=== PATIENT | female | born 1990 | race Hispanic/Latino ===

== ENCOUNTER 2021-12-24 22:09 | Emergency (ER) | payer MEDICAID, SELFPAY ==
[2021-12-24] MEDS ORDERED: Ondansetron PF 4 MG/2 ML Vial ONE (22:18)
[2021-12-24 23:02] LABS: #Basophils 0.1 10x3/uL (0.0-0.2); #Eosinphils 0.2 10x3/uL (0.0-0.5); #Monocytes 0.6 10x3/uL (0.0-1.1); #Neutrophils 3.1 10x3/uL (1.5-8.4); %Basophils 0.9 % (0.0-2.0); %Eosinophils 2.9 % (0.0-6.0); %Lymphocytes 33.1 % (18.0-47.0); %Monocytes 9.7 % (0.0-10.0); %Neutrophils 53.2 % (40.0-75.0); Hemoglobin 12.3 g/dL (12.0-15.5); Mean Corpuscular HGB CONC 33.9 g/dL (32.0-36.0); Mean Corpuscular Hemoglobin 28.7 pg (27.0-33.0); Mean Corpuscular Volume 84.6 fl (81.6-98.3); Mean Platelet Volume 11.3 fl (7.4-10.4); Platelet Count 172 10x3/uL (150-450); RBC Distribution Width 13.2 % (11.5-14.5); Red Blood Cell (RBC) Count 4.29 10x6/uL (3.90-5.03); White Blood Cell (WBC) Count 5.8 10x3/uL (3.5-10.5)
[2021-12-24 23:06] LABS: BHCG - Serum Negative (NEGATIVE); Pregs Control Background? CLEAR/WHITE (CLR/WHITE); Pregs Control Bar Appear? YES (CONTROL BAR)
[2021-12-24 23:12] LABS: ALT (SGPT) 19 U/L (8-55); AST (SGOT) 22 U/L (5-34); Albumin 4.3 g/dL (3.5-5.0); Alkaline Phosphatase 77 U/L (40-110); Anion Gap 14 mmol/L (10-20); BUN (Urea Nitrogen) 11 mg/dL (7.0-18.7); Bilirubin, Total 0.3 mg/dL (0.2-1.2); Calc. Creatinine Clearance 0 mL/min (70-130); Calcium 8.9 mg/dL (7.8-10.44); Carbon Dioxide 16 mmol/L (22-29); Chloride 116 mmol/L (98-107); Estimated GFR 114; Globulin 2.9 g/dL (2.4-3.5); Glucose 88 mg/dL (70-105); Protein, Total 7.2 g/dL (6.0-8.3); Sodium 143 mmol/L (136-145)
[2021-12-24 23:13] LABS: Acetaminophen Less than 10.0 mcg/mL (10.0-30.0); Alcohol 205 mg/dL (Less than 10); Salicylate Less than 8.0 mg/dL (15.0-30.0)
== END 2021-12-25 01:33 | disposition home or self-care (01) ==
LOC: CSHERS 22:09
DX: F10.129 Alcohol abuse with intoxication, unspecified (principal); Y90.7 Blood alcohol level of 200-239 mg/100 ml
CPT/HCPCS: 36415; 70450; 71045; 80053; 80307; 84703; 85025; 96374; J2405

== ENCOUNTER 2024-03-04 18:13 | Day surgery (SDC) | payer OTHER ==
[2024-03-04 18:33] VITALS: BMI 31.9
[2024-03-04] MEDS ORDERED: hydrALAZINE 20 MG/ML VIAL SLOW IVP PRN (18:48)
[2024-03-04 19:11] LABS: Fetal Membranes Rupture No Membranes Rupture (No Rupture)
[2024-03-04] MEDS: Acetaminophen 500 MG TAB PO SCH (19:43)
== END 2024-03-04 21:56 | disposition home or self-care (01) ==
LOC: CSHLD/OP 18:13
PROVIDERS: ATTEND Obstetrics & Gynecology
DX: O47.1 False labor at or after 37 completed weeks of gestation (principal); O14.93 Unspecified pre-eclampsia, third trimester; O99.513 Diseases of the respiratory system complicating pregnancy, third trimester; J45.909 Unspecified asthma, uncomplicated; O98.813 Other maternal infectious and parasitic diseases complicating pregnancy, third trimester; A74.9 Chlamydial infection, unspecified; O23.593 Infection of other part of genital tract in pregnancy, third trimester; N89.8 Other specified noninflammatory disorders of vagina; Z79.82 Long term (current) use of aspirin; Z79.899 Other long term (current) drug therapy; Z3A.38 38 weeks gestation of pregnancy
CPT/HCPCS: 84112; 87480; 87510; 87660; 99283; 99285

== ENCOUNTER 2024-03-14 19:00 | Inpatient (IN) | payer MEDICAID, OTHER ==
[~2024-03-14 19:00] MED LIST: Bupivacaine 0.25% HCL 30 ML VIAL ONE
[2024-03-14 23:03] VITALS: BMI 36.7
[2024-03-14] MEDS ORDERED: Methylergonovine 0.2 MG/ML VIAL IM PRN (23:16)
[2024-03-14] MEDS ORDERED: Tranexamic Acid 1,000 MG/10 ML VIAL IVP PRN (23:16)
[2024-03-14] MEDS ORDERED: Acetaminophen 500 MG TAB PO PRN (23:16)
[2024-03-14] MEDS ORDERED: Promethazine HCl 25 MG/ML VIAL IM PRN (23:16)
[2024-03-14] MEDS ORDERED: hydrALAZINE 20 MG/ML VIAL SLOW IVP PRN (23:16)
[2024-03-14] MEDS ORDERED: Lidocaine 1% (PF) 30 ML VIAL SC PRN (23:16)
[2024-03-14] MEDS ORDERED: Ondansetron PF 4 MG/2 ML Vial IVP PRN (23:16)
[2024-03-14] MEDS ORDERED: Docusate 100 MG CAP PO PRN (23:16)
[2024-03-14] MEDS: Lactated Ringer's 1,000 ML IV SCH (23:30)
[2024-03-14] MEDS ORDERED: Oxytocin 30 units/NS 500 ML 500 ML IV SCH ×2 (23:30)
[2024-03-14 23:38] LABS: Hematocrit 32.3 % (34.9-44.5); Hemoglobin 10.7 g/dL (12.0-15.5); Mean Corpuscular HGB CONC 33.1 g/dL (32.0-36.0); Mean Corpuscular Hemoglobin 27.2 pg (27.0-33.0); Mean Platelet Volume 11.8 fL (7.4-10.4); Platelet Count 225 10x3/uL (150-450); RBC Distribution Width 15.3 % (11.5-14.5); Red Blood Cell (RBC) Count 3.94 10x6/uL (3.90-5.03); White Blood Cell (WBC) Count 6.1 10x3/uL (3.5-10.5)
[2024-03-14] MEDS: Penicillin G Potassium 5 MILL.UNITS in Sodium Chloride 0.9% 100 ML IVPB SCH (23:45)
[2024-03-14 23:58] LABS: Syphilis Antibody Nonreactive (Nonreactive); Syphilis Antibody Index 0.02 S/CO (<1.00 Non-Reactive)
[2024-03-14 23:59] LABS: Hep B Surf Ag - L&D Non-Reactive S/CO (NonReactive)
[2024-03-15] MEDS: fentaNYL/Ropivacaine Epidural 100 ML ONE (02:26)
[2024-03-15] MEDS ORDERED: Lactated Ringer's 500 ML IV PRN (03:04)
[2024-03-15] MEDS ORDERED: ePHEDrine Sulfate 50 MG/10 ML VIAL SLOW IVP PRN (03:04)
[2024-03-15] MEDS ORDERED: Promethazine HCl 25 MG/ML VIAL IM PRN (03:04)
[2024-03-15] MEDS ORDERED: Ondansetron PF 4 MG/2 ML Vial IVP PRN (03:04)
[2024-03-15] MEDS ORDERED: diphenhydrAMINE 50 MG/ML VIAL IVP PRN (03:04)
[2024-03-15] MEDS ORDERED: Moisturizing Cream (Eucerin) 113 GM JAR TOP PRN (03:04)
[2024-03-15] MEDS ORDERED: Naloxone HCl 0.4 mg/ml Vial IVP PRN ×2 (03:04)
[2024-03-15] MEDS: Penicillin G 2.5 MILL.units 2.5 MILL.UNITS in Premix 1 BAG IVPB SCH (03:09)
[2024-03-15] MEDS ORDERED: ACTIVE EPIDURAL FS SCH (03:15)
[2024-03-15] MEDS ORDERED: fentaNYL 2 mcg/Ropivacaine 0.2% Epidural 100 ML CADD EPIDURAL SCH (03:15)
[2024-03-15] MEDS: Misoprostol 200 MCG TAB PR PRN (04:10)
[2024-03-15] MEDS: Oxytocin 30 units/NS 500 ML 500 ML IV SCH (04:15)
[2024-03-15] MEDS ORDERED: Lorazepam 2 MG/ML VIAL SLOW IVP PRN (05:29)
[2024-03-15] MEDS ORDERED: Calcium Gluc 4.6 MEQ/10 ML (100 MG/ML) SLOW IVP PRN (05:29)
[2024-03-15] MEDS ORDERED: Labetalol HCl 100 MG/20 ML VIAL SLOW IVP PRN ×2 (05:29)
[2024-03-15] MEDS ORDERED: hydrALAZINE 20 MG/ML VIAL SLOW IVP PRN ×3 (05:29→06:32)
[2024-03-15] MEDS: Ibuprofen 800 MG TAB PO PRN (05:39)
[2024-03-15 06:11] LABS: #Basophils 0.04 10x3/uL (0.0-0.2); #Eosinophils 0.03 10x3/uL (0.0-0.5); #Monocytes 0.56 10x3/uL (0.0-1.1); #Neutrophils 8.06 10x3/uL (1.5-8.4); %Basophils 0.4 % (0.0-2.0); %Eosinophils 0.3 % (0.0-6.0); %Lymphocytes 11.8 % (18.0-47.0); %Monocytes 5.6 % (0.0-10.0); %Neutrophils 81.3 % (40.0-75.0); Hematocrit 30.6 % (34.9-44.5); Hemoglobin 10.3 g/dL (12.0-15.5); Mean Corpuscular HGB CONC 33.7 g/dL (32.0-36.0); Mean Corpuscular Hemoglobin 27.5 pg (27.0-33.0); Mean Corpuscular Volume 81.8 fL (81.6-98.3); Mean Platelet Volume 11.4 fL (7.4-10.4); Platelet Count 218 10x3/uL (150-450); RBC Distribution Width 15.5 % (11.5-14.5); Red Blood Cell (RBC) Count 3.74 10x6/uL (3.90-5.03); White Blood Cell (WBC) Count 9.9 10x3/uL (3.5-10.5)
[2024-03-15 06:18] LABS: ALT (SGPT) 9 U/L (8-55); AST (SGOT) 16 U/L (5-34); Albumin 2.8 g/dL (3.5-5.0); Alkaline Phosphatase 162 U/L (40-110); Anion Gap 15 mmol/L (10-20); BUN (Urea Nitrogen) 8 mg/dL (7.0-18.7); Bilirubin, Total 0.3 mg/dL (0.2-1.2); Calc. Creatinine Clearance 153 mL/min (70-130); Calcium 8.3 mg/dL (7.8-10.44); Carbon Dioxide 17 mmol/L (22-29); Chloride 108 mmol/L (98-107); Estimated GFR 108; Globulin 3.4 g/dL (2.4-3.5); Glucose 88 mg/dL (70-105); Potassium 4.3 mmol/L (3.5-5.1); Protein, Total 6.2 g/dL (6.0-8.3); Sodium 136 mmol/L (136-145)
[2024-03-15] MEDS ORDERED: Preparation H Ointment 28 GM TUBE PR PRN (06:32)
[2024-03-15] MEDS ORDERED: Bisacodyl 10 MG SUPP PR PRN (06:32)
[2024-03-15] MEDS ORDERED: Lanolin Ointment 7 GM TUBE TOP PRN (06:32)
[2024-03-15] MEDS ORDERED: Benzocaine-Menthol 82.5 ML CAN TOP PRN (06:32)
[2024-03-15] MEDS ORDERED: Milk Of Magnesia 30 ML UDCUP PO PRN (06:32)
[2024-03-15 07:13] LABS: Creatinine, Urine 95.33 mg/dL (47-110)
[2024-03-15] MEDS: Ibuprofen 800 MG TAB PO SCH ×2 (08:47→13:35)
[2024-03-15] MEDS: Ferrous Sulfate 325 MG TAB PO SCH (08:48)
[2024-03-15] MEDS: Boostrix 0.5 ML (Tdap) VIAL (>/=7 yrs of age) IM ONE (08:48)
[2024-03-15] MEDS: Docusate 100 MG CAP PO SCH (09:04)
[2024-03-15] MEDS: Prenatal Vitamin 1 TAB PO SCH (09:04)
[2024-03-16 07:43] VITALS: BP 132/75; TEMP 98.5
[2024-03-16] MEDS: Acetaminophen 325 MG TAB PO PRN (08:34)
== END 2024-03-16 15:50 | disposition home or self-care (01) | DRG 807 ==
LOC: CSHLD 21:10 → CSHPP 03-15 08:00
PROVIDERS: ADMIT Family Medicine; ATTEND Family Medicine
PROC: 10E0XZZ Delivery of Products of Conception, External Approach (ICD-10-PCS; principal; 2024-03-15)
DX: O99.824 Streptococcus B carrier state complicating childbirth (principal); Z37.0 Single live birth; O99.52 Diseases of the respiratory system complicating childbirth; J45.909 Unspecified asthma, uncomplicated; Z14.8 Genetic carrier of other disease; Z79.899 Other long term (current) drug therapy; O09.43 Supervision of pregnancy with grand multiparity, third trimester; Z3A.40 40 weeks gestation of pregnancy; O69.81X0 Labor and delivery complicated by cord around neck, without compression, not applicable or unspecified
CPT/HCPCS: 51702; 80053; 82570; 84156; 85025; 85027; 86780; 86850; 86900; 86901; 87340; J0665; J2540; J2590; J7120

== ENCOUNTER 2025-03-08 02:01 | Emergency (ER) | payer SELFPAY ==
[2025-03-08] MEDS ORDERED: Famotidine/PF 20 mg/2ml Vial ONE (02:30)
[2025-03-08] MEDS ORDERED: PROPOFOL 20 ML ONE (02:31)
[2025-03-08] MEDS ORDERED: Ondansetron PF 4 MG/2 ML Vial ONE (02:32)
[2025-03-08] MEDS ORDERED: Rocuronium Bromide 10 MG/ML (10ML VIAL) ONE (02:32)
[2025-03-08] MEDS ORDERED: Ketorolac Tromethamine 30 MG (1 mL) VIAL ONE (02:32)
[2025-03-08] MEDS ORDERED: SUGAMMADEX SODIUM 200 MG/2 ML VIAL ONE (02:32)
[2025-03-08] MEDS ORDERED: SUCCINYLCHOLINE/SOD CL,ISO/PF 200 MG/10 ML SYRINGE FS ONE (02:32)
[2025-03-08] MEDS ORDERED: Bupivacaine HCl 0.5%/Epinephrine 1:200,000/PF 30 ml Vial ONE (02:41)
[2025-03-08] MEDS ORDERED: HYDROcodone/Acetaminophen 5/325 mg Tablet ONE (05:28)
== END 2025-03-08 02:53 | disposition admitted as inpatient to this hospital (09) ==
LOC: CSHERS 02:01
PROC: 10T24ZZ Resection of Products of Conception, Ectopic, Percutaneous Endoscopic Approach (ICD-10-PCS; principal; 2025-03-08)
DX: O00.102 Left tubal pregnancy without intrauterine pregnancy (principal); O09.529 Supervision of elderly multigravida, unspecified trimester; O09.40 Supervision of pregnancy with grand multiparity, unspecified trimester; Z3A.00 Weeks of gestation of pregnancy not specified
CPT/HCPCS: 86850; 86900; 86901; 88305; 99285; J1100; J1885; J2704